=== PATIENT | female | born 1960 | race Caucasian/White ===

== ENCOUNTER 2018-01-19 11:47 | Emergency (ER) | payer OTHER ==
[~2018-01-19] VITALS: Ht 165.1 cm; Wt 77.7 kg
[~2018-01-19 11:47] MED LIST: OMEP40EC1 PO
[2018-01-19 12:00] VITALS: BP 172/99
--- NOTE | 2018-01-19 14:00 | NUR ---
57YO F C/O DIZZINESS SINCE LAST NIGHT; TOOK HER MEDICATION AT 1100 TODAY, PT STATES THAT THE ROOM IS SPINNING WITH QUICK HEAD MOVEMENTS. PT DENIES ANY N/V/D. LS CLEAR THROUGHOUT, BS ACTIVE X4, ABD SOFT NON TENDER. WILL CONTINUE TO MONITOR, ER MD MADE AWARE. PT PROVIDED WITH CUP OF WATER. BS:236 HX; DM, HTN, CHOLESTEROL RX; ATORVASTATIN, AMLODIPIN-BENAZEPRIL, METFORMIN, ASA
[2018-01-19] MEDS: NACL 0.9% 1,000 ML IV ONE (15:43)
[2018-01-19 15:56] LABS: BASOPHILS % (AUTO) 0.5 % (0.0-2.0); EOSINOPHILS # (AUTO) 0.1 K/uL (0-0.4); EOSINOPHILS % (AUTO) 1.3 % (0.0-4.0); HEMATOCRIT 44.6 % (36-48); HEMOGLOBIN 14.9 g/dL (12.0-16.0); LYMPHOCYTES # (AUTO) 2.4 K/uL (2.5-16.5); LYMPHOCYTES % (AUTO) 25.8 % (20.5-51.1); MEAN CORPUSCULAR HEMOGLOBIN 30 pg (27-31); MEAN CORPUSCULAR HGB CONC 33 g/dL (33-37); MEAN CORPUSCULAR VOLUME 90.2 fL (80-94); MONOCYTES # (AUTO) 0.5 K/uL (0.8-1.0); MONOCYTES % (AUTO) 5.5 % (1.7-9.3); NEUTROPHILS # (AUTO) 6.2 K/uL (1.8-7.7); NEUTROPHILS % (AUTO) 66.9 % (42.2-75.2); PLATELET COUNT (AUTO) 257 K/uL (140-450); RED BLOOD CELL COUNT(AUTO) 4.94 MIL/uL (4.20-5.40); RED CELL DISTRIBUTION WIDTH 13.5 % (11.6-13.7); WHITE BLOOD COUNT (AUTO) 9.3 K/uL (4.8-10.8)
[2018-01-19] MEDS: ONDANSETRON 4 MG ODT PO ONE (16:10)
[2018-01-19 16:15] LABS: BILIRUBIN,URINE NEGATIVE (NEGATIVE); BLOOD, URINE NEGATIVE (NEGATIVE); COLOR,URINE YELLOW (YELLOW); LEUKOCYTE ESTERASE ,URINE NEGATIVE (NEGATIVE); NITRITE, URINE NEGATIVE (NEGATIVE); UGLUCOSE 1+ (NEGATIVE)
[2018-01-19 16:23] LABS: ANION GAP 8.7 (8-16); CARBON DIOXIDE 29.2 mmol/L (21-32); CREATININE 0.8 mg/dL (0.6-1.3); POTASSIUM 3.9 mmol/L (3.5-5.1)
[2018-01-19 16:27] LABS: APPEARANCE,URINE CLEAR (CLEAR)
--- NOTE | 2018-01-19 16:38 | NUR ---
PT LEFT FOR CT PER TECH VIA WHEELCHAIR.
[2018-01-19 16:39] LABS: ALBUMIN 4.2 g/dL (3.4-5.0); THYROID STIMULATING HORMONE 7.91 uIU/mL (0.34-3.74); TOTAL BILIRUBIN 0.4 mg/dL (0.0-1.0)
[2018-01-19] MEDS: MECLIZINE 25 MG TAB PO ONE (16:52)
[2018-01-19] MEDS: METOCLOPRAMIDE 10 MG/2 ML INJ VIAL IVP ONE (16:53)
--- NOTE | 2018-01-19 16:53 | NUR ---
PT BACK TO CHAIR E
[2018-01-19] MEDS: diphenhydrAMINE 50 MG/ML VIAL IVP ONE (16:56)
[2018-01-19 18:11] VITALS: BP 138/75
--- NOTE | 2018-01-19 18:11 | NUR ---
Patient discharged with v/s stable. Written and verbal after care instructions given and explained. Patient alert, oriented and verbalized understanding of instructions. Ambulatory with steady gait. All questions addressed prior to discharge. ID band removed. Patient advised to follow up with PMD. Rx of MECLIZINE HYDROCHLORIDE given. Patient educated on indication of medication including possible reaction and side effects. Opportunity to ask questions provided and answered.
== END 2018-01-19 18:11 | disposition home or self-care (01) ==
LOC: MED 11:47
DX: R42 Dizziness and giddiness (principal); R94.31 Abnormal electrocardiogram [ECG] [EKG]; E11.9 Type 2 diabetes mellitus without complications; I10 Essential (primary) hypertension; Z88.6 Allergy status to analgesic agent; Z79.899 Other long term (current) drug therapy
CPT/HCPCS: 36415; 70450; 71046; 80053; 81003; 82948; 83690; 83735; 84443; 84484; 85025; 93005; 96361; 96374; 96375; 99285; J1200; J2765; J7030; J8597; S0119

== ENCOUNTER 2020-03-28 05:26 | Inpatient (IN) | payer OTHER, SELFPAY ==
[2020-03-21 12:00] LABS: BASOPHILS % (AUTO) 0.5 % (0.0-2.0); EOSINOPHILS # (AUTO) 0.1 K/uL (0-0.4); EOSINOPHILS % (AUTO) 0.6 % (0.0-4.0); HEMATOCRIT 35.5 % (36-48); HEMOGLOBIN 11.3 g/dL (12.0-16.0); LYMPHOCYTES # (AUTO) 2.2 K/uL (2.5-16.5); LYMPHOCYTES % (AUTO) 22.3 % (20.5-51.1); MEAN CORPUSCULAR HEMOGLOBIN 26 pg (27-31); MEAN CORPUSCULAR HGB CONC 32 g/dL (33-37); MEAN CORPUSCULAR VOLUME 81.2 fL (80-94); MONOCYTES # (AUTO) 0.7 K/uL (0.8-1.0); MONOCYTES % (AUTO) 6.5 % (1.7-9.3); NEUTROPHILS % (AUTO) 70.1 % (42.2-75.2); PLATELET COUNT (AUTO) 357 K/uL (140-450); RED BLOOD CELL COUNT(AUTO) 4.37 MIL/uL (4.20-5.40); RED CELL DISTRIBUTION WIDTH 13.9 % (11.6-13.7)
[2020-03-21 12:11] LABS: ALBUMIN 4.1 g/dL (3.4-5.0); ANION GAP 9.9 (8-16); CARBON DIOXIDE 26.8 mmol/L (21-32); CREATININE 0.8 mg/dL (0.6-1.3); POTASSIUM 3.7 mmol/L (3.5-5.1); TOTAL BILIRUBIN 0.4 mg/dL (0.0-1.0)
[~2020-03-28] VITALS: Ht 157.5 cm; Wt 74.8 kg
[~2020-03-28 05:26] MED LIST changes: -OMEP40EC1 PO; +OMEP40EC24 PO
[2020-03-28] MEDS ORDERED: BUPIVACAINE-MPF 0.25% 30 ML VIAL INJ ONE (07:12)
[2020-03-28] MEDS ORDERED: LIDOCAINE 1% 500 MG/50 ML VIAL ONE (07:12)
[2020-03-28] MEDS ORDERED: ceFAZolin 1,000 MG VIAL ONE ×2 (07:33→07:35)
[2020-03-28] MEDS ORDERED: LIDOCAINE MPF 2% 100 MG/5 ML VIAL INJ ONE (07:35)
[2020-03-28] MEDS ORDERED: NEOSTIGMINE 1:1000 10 MG/10 ML VIAL ONE (07:35)
[2020-03-28] MEDS ORDERED: ROCURONIUM 50 MG/5 ML VIAL IV ONE (07:35)
[2020-03-28] MEDS ORDERED: ONDANSETRON 4 MG/2 ML VIAL ONE ×2 (07:35)
[2020-03-28] MEDS ORDERED: ETOMIDATE 20 MG/10 ML VIAL IVP ONE (07:35)
[2020-03-28] MEDS ORDERED: MORPHINE PRES FREE 10 MG/10 ML AMP IV ONE (07:35)
[2020-03-28] MEDS ORDERED: GLYCOPYRROLATE 0.2 MG/ML VIAL ONE (07:35)
[2020-03-28] MEDS ORDERED: DEXAMETHASONE 4 MG/ML VIAL ONE (07:35)
[2020-03-28] MEDS ORDERED: PROPOFOL 200 MG/20 ML VIAL IV ONE (07:35)
[2020-03-28] MEDS ORDERED: fentaNYL citrate 0.05 MG/ML VIAL ONE (07:35)
[2020-03-28] MEDS ORDERED: SUCCINYLCHOLINE CHLORIDE 200 MG/10 ML VIAL IVP ONE (07:35)
[2020-03-28] MEDS ORDERED: SEVOFLURANE 250 ML BTL INH ONE (07:35)
[2020-03-28] MEDS ORDERED: KETOROLAC 30 MG/ML VIAL IVP PRN (08:10)
[2020-03-28] MEDS ORDERED: TEMAZEPAM 15 MG CAP PO PRN (08:10)
[2020-03-28] MEDS ORDERED: oxyCODONE/APAP 5/325 MG 1 TAB TAB PO PRN (08:10)
[2020-03-28] MEDS ORDERED: ONDANSETRON 4 MG/2 ML VIAL IVP PRN ×3 (08:10→08:45)
[2020-03-28] MEDS ORDERED: BLOOD GLUCOSE MONITORING 1 DEV DEV FS ONE (08:45)
[2020-03-28] MEDS ORDERED: diphenhydrAMINE 50 MG/ML VIAL IVP PRN ×2 (08:45)
[2020-03-28] MEDS ORDERED: HYDROmorphone 1 MG/ML AMP IVP PRN (08:45)
[2020-03-28] MEDS ORDERED: MEPERIDINE 25 MG/ML SYR IVP PRN (08:45)
[2020-03-28] MEDS ORDERED: NALOXONE 0.4 MG/ML VIAL IVP PRN ×2 (08:45)
[2020-03-28] MEDS ORDERED: fentaNYL citrate 0.05 MG/ML VIAL IVP PRN (08:45)
--- NOTE | 2020-03-28 08:52 | NUR ---
PATIENT HAS BEEN SCREENED AND CATEGORIZED LOW NUTRITION RISK. PATIENT WILL BE SEEN WITHIN 7 DAYS OF ADMISSION. 04/03/[address]
[2020-03-28] MEDS: LACTATED RINGERS 1,000 ML IV SCH ×2 (15:26→22:41)
[2020-03-28] MEDS: KETOROLAC 30 MG/ML VIAL IM/IVP SCH ×2 (15:44→21:52)
[2020-03-28] MEDS ORDERED: metFORMIN 500 MG TAB PO SCH (20:20)
[2020-03-28] MEDS ORDERED: ATORVASTATIN 20 MG TAB ONE (20:41)
[2020-03-28] MEDS ORDERED: metFORMIN 500 MG TAB ONE (20:42)
[2020-03-28] MEDS ORDERED: ATORVASTATIN 20 MG TAB PO SCH (21:00)
[2020-03-28] MEDS: DOCUSATE SOD/SENNA 50/8.6 MG 1 TAB PO SCH (21:10)
[2020-03-29] MEDS ORDERED: CAMERA MC ONE (02:05)
[2020-03-29] MEDS: SIMETHICONE 80 MG TAB.CHEW PO PRN ×2 (04:41→12:37)
[2020-03-29 07:00] LABS: BASOPHILS % (AUTO) 0.1 % (0.0-2.0); EOSINOPHILS % (AUTO) 0.1 % (0.0-4.0); LYMPHOCYTES # (AUTO) 1.7 K/uL (2.5-16.5); LYMPHOCYTES % (AUTO) 14.5 % (20.5-51.1); MEAN CORPUSCULAR HEMOGLOBIN 26 pg (27-31); MEAN CORPUSCULAR HGB CONC 32 g/dL (33-37); MEAN CORPUSCULAR VOLUME 79.9 fL (80-94); MONOCYTES # (AUTO) 1.2 K/uL (0.8-1.0); MONOCYTES % (AUTO) 10.1 % (1.7-9.3); NEUTROPHILS # (AUTO) 8.8 K/uL (1.8-7.7); NEUTROPHILS % (AUTO) 75.2 % (42.2-75.2); PLATELET COUNT (AUTO) 247 K/uL (140-450); RED CELL DISTRIBUTION WIDTH 13.9 % (11.6-13.7); WHITE BLOOD COUNT (AUTO) 11.7 K/uL (4.8-10.8)
[2020-03-29] MEDS: oxyCODONE/APAP 5/325 MG 1 TAB TAB PO PRN (12:35)
[2020-03-29] MEDS: IBUPROFEN 800 MG TAB PO PRN (19:38)
[2020-03-29] MEDS: DOCUSATE SOD/SENNA 50/8.6 MG 1 TAB PO SCH (21:06)
[2020-03-30] MEDS: oxyCODONE/APAP 5/325 MG 1 TAB TAB PO PRN (00:52)
[2020-03-30] MEDS: SIMETHICONE 80 MG TAB.CHEW PO PRN (05:08)
[2020-03-30] MEDS ORDERED: bisacodyL 10 MG SUPP RC SCH (08:35)
[2020-03-30] MEDS: IBUPROFEN 800 MG TAB PO PRN (12:05)
[2020-03-30 12:18] VITALS: BP 114/71
== END 2020-03-30 13:50 | disposition home or self-care (01) | DRG 513 ==
LOC: MFCC 05:26
PROVIDERS: ADMIT Obstetrics & Gynecology; ATTEND Obstetrics & Gynecology
PROC: 0UT70ZZ Resection of Bilateral Fallopian Tubes, Open Approach (ICD-10-PCS; 2020-03-28)
PROC: 0UT90ZL Resection of Uterus, Supracervical, Open Approach (ICD-10-PCS; principal; 2020-03-28 07:30)
DX: N95.0 Postmenopausal bleeding (principal); D25.9 Leiomyoma of uterus, unspecified; Z20.828 Contact with and (suspected) exposure to other viral communicable diseases
CPT/HCPCS: 36415; 71045; 80053; 81025; 84702; 85025; 86886; 86900; 86901; J0330; J0690; J1100; J1885; J2001; J2270; J2405; J2704; J2710; J3010; J3490; U0003

== ENCOUNTER 2020-07-04 05:35 | Emergency (ER) | payer OTHER, SELFPAY ==
[~2020-07-04] VITALS: Ht 162.6 cm; Wt 69.4 kg
[2020-07-04 05:39] VITALS: BP 142/85
--- NOTE | 2020-07-04 05:39 | NUR ---
TO BED AMBULATORY
--- NOTE | 2020-07-04 05:47 | NUR ---
PATIENT PRESENTS TO ED WITH C/O PAINFUL URINATION SINCE YESTERDAY WITHM ABDOMINAL PAIN . PT STATES THERE HAS BEEN BLOOD IN THE URINE. DENIES N/V/D; SKIN IS PINK/WARM/DRY; AAOX4 WITH EVEN AND STEADY GAIT; LUNGS CLEAR BL; HR EVEN AND REGULAR; VSS; PATIENT POSITIONED FOR COMFORT; HOB ELEVATED; BEDRAILS UP X2; BED DOWN. ER MD MADE AWARE OF PT STATUS.
--- NOTE | 2020-07-04 05:52 | NUR ---
UA OBTAINED AND SENT TO LAB
[2020-07-04 06:03] LABS: APPEARANCE,URINE CLOUDY (CLEAR); BILIRUBIN,URINE NEGATIVE (NEGATIVE); BLOOD, URINE 3+ (NEGATIVE); COLOR,URINE RED (YELLOW); LEUKOCYTE ESTERASE ,URINE 2+ (NEGATIVE); NITRITE, URINE POSITIVE (NEGATIVE); PH,URINE 5.5 (5.0-9.0); UGLUCOSE NEGATIVE (NEGATIVE)
[2020-07-04 06:21] LABS: RBC,URINE TOO NUMEROUS TO COUN /HPF (0-5)
[2020-07-04 06:22] LABS: WBC,URINE 16-25 (MOD) /HPF (0-5)
[2020-07-04 06:23] LABS: YEAST,URINE Few /HPF (None Seen)
[2020-07-04] MEDS ORDERED: PYR100 PO (06:27)
[2020-07-04] MEDS ORDERED: SULF-59 PO (06:27)
[2020-07-04 06:34] VITALS: BP 142/85
--- NOTE | 2020-07-04 06:34 | NUR ---
Patient discharged with v/s stable. Written and verbal after care instructions given and explained. Patient alert, oriented and verbalized understanding of instructions. Ambulatory with steady gait. All questions addressed prior to discharge. ID band removed. Patient advised to follow up with PMD. Rx of PYRIDIUM, BACTRIM DS given. Patient educated on indication of medication including possible reaction and side effects. Opportunity to ask questions provided and answered.
== END 2020-07-04 06:39 | disposition home or self-care (01) ==
LOC: MED 05:35
DX: N30.91 Cystitis, unspecified with hematuria (principal); R30.0 Dysuria; E11.9 Type 2 diabetes mellitus without complications; I10 Essential (primary) hypertension; Z88.8 Allergy status to other drugs, medicaments and biological substances; Z79.899 Other long term (current) drug therapy; Z90.49 Acquired absence of other specified parts of digestive tract; Z85.9 Personal history of malignant neoplasm, unspecified
CPT/HCPCS: 81001; 87086; 99283

== ENCOUNTER 2020-07-06 09:36 | Emergency (ER) | payer OTHER ==
[~2020-07-06] VITALS: Ht 167.6 cm; Wt 72.6 kg
[~2020-07-06 09:36] MED LIST changes: -OMEP40EC24 PO; +PYR100 PO; +SULF-59 PO
[2020-07-06 09:45] VITALS: BP 164/72
[2020-07-06] MEDS ORDERED: cefTRIAXone 1,000 MG in LIDOCAINE MPF 1% 2.1 ML IM ONE (10:20)
[2020-07-06] MEDS ORDERED: LIDOCAINE MPF 1% 10 MG/ML VIAL INJ ONE (10:20)
[2020-07-06] MEDS ORDERED: LIDOCAINE MPF 1% 5 ML ONE (10:23)
[2020-07-06] MEDS ORDERED: cefTRIAXone 1,000 MG VIAL ONE (10:23)
[2020-07-06] MEDS ORDERED: CIPR500T4 PO (10:26)
[2020-07-06] MEDS ORDERED: PYR100 PO (10:27)
[2020-07-06 10:44] VITALS: BP 164/72
== END 2020-07-06 10:46 | disposition home or self-care (01) ==
LOC: MED 09:36
DX: N39.0 Urinary tract infection, site not specified (principal); E11.9 Type 2 diabetes mellitus without complications; I10 Essential (primary) hypertension; Z88.6 Allergy status to analgesic agent; Z85.9 Personal history of malignant neoplasm, unspecified
CPT/HCPCS: 81002; 82948; 87086; 96372; 99283; J0696; J2001

== ENCOUNTER 2021-01-25 16:40 | Emergency (ER) | payer OTHER ==
[~2021-01-25] VITALS: Ht 162.6 cm; Wt 73.5 kg
[~2021-01-25 16:40] MED LIST changes: +CIPR500T4 PO
[2021-01-25 16:46] VITALS: BP 152/91
--- NOTE | 2021-01-25 17:00 | NUR ---
60 Y/O FEMALE C/O URINARY BURNING. PT STATES "SORENESS UPON URINATION" X 3AM. PT STATES 8/10 PAIN. MEDHX: DM, HTN ALLERGIES: TRAMADOL
[2021-01-25] MEDS ORDERED: SULF-59 PO (17:18)
[2021-01-25] MEDS ORDERED: PYR100 PO (17:18)
[2021-01-25] MEDS ORDERED: ACET-10509 PO (17:18)
[2021-01-25] MEDS ORDERED: cefTRIAXone 500 MG in LIDOCAINE MPF 1% 1 ML IM ONE (17:20)
[2021-01-25] MEDS ORDERED: cefTRIAXone 500 MG VIAL ONE (17:33)
[2021-01-25] MEDS ORDERED: LIDOCAINE MPF 1% 5 ML ONE (17:34)
--- NOTE | 2021-01-25 18:03 | NUR ---
Patient discharged with v/s stable. Written and verbal after care instructions ABOUT UTI given and explained. Patient alert, oriented and verbalized understanding of instructions. Ambulatory with steady gait. All questions addressed prior to discharge. ID band removed. Patient advised to follow up with PMD. Rx of TYLENOL EXTRA STRENGTH, PYRIDIUM AND BACTRIM DS given. Patient educated on indication of medication including possible reaction and side effects. Opportunity to ask questions provided and answered.
== END 2021-01-25 18:03 | disposition home or self-care (01) ==
LOC: MED 16:40
DX: N39.0 Urinary tract infection, site not specified (principal); E11.9 Type 2 diabetes mellitus without complications; I10 Essential (primary) hypertension; Z88.5 Allergy status to narcotic agent; Z79.899 Other long term (current) drug therapy; Z85.9 Personal history of malignant neoplasm, unspecified
CPT/HCPCS: 81002; 81025; 96372; 99283; J0696; J2001

== ENCOUNTER 2021-08-06 15:31 | Emergency (ER) | payer OTHER ==
[~2021-08-06] VITALS: Ht 162.6 cm; Wt 72.6 kg
[~2021-08-06 15:31] MED LIST changes: +ACET-10509 PO
[2021-08-06 15:37] VITALS: BP 140/104
[2021-08-06] MEDS ORDERED: ACET-8386 PO ×2 (16:20→16:21)
[2021-08-06] MEDS ORDERED: IBUP-1842 PO (16:20)
[2021-08-06] MEDS ORDERED: VALA1TAB2 PO (16:20)
--- NOTE | 2021-08-06 16:34 | NUR ---
60 Y/O FEMALE C/O LEFT LEG PAIN 10 X1WEEK AGO. DENIES FEVER/CHILLS. DENIES N/V/D. PMH: UTERINE CANCER, HYSTERECTOMY, CHEMOTHERAPY, DM, HTN, HLD ALLERGIES: TRAMADOL
[2021-08-06 16:49] VITALS: BP 140/104
--- NOTE | 2021-08-06 16:50 | NUR ---
Patient discharged with v/s stable. Written and verbal after care instructions given and explained. Patient alert, oriented and verbalized understanding of instructions. Ambulatory with steady gait. All questions addressed prior to discharge. ID band removed. Patient advised to follow up with PMD. Rx of HYDROCODONE-ACETAMINOPHEN, IBUPROFEN, VALCYCLOVIR HCL given. Patient educated on indication of medication including possible reaction and side effects. Opportunity to ask questions provided and answered.
== END 2021-08-06 16:50 | disposition home or self-care (01) ==
LOC: MED 15:31
DX: B02.9 Zoster without complications (principal); E11.9 Type 2 diabetes mellitus without complications; I10 Essential (primary) hypertension; Z88.6 Allergy status to analgesic agent; Z79.899 Other long term (current) drug therapy
CPT/HCPCS: 82948; 99283

== ENCOUNTER 2022-03-15 09:45 | Emergency (ER) | payer OTHER ==
[~2022-03-15] VITALS: Ht 165.1 cm; Wt 73.3 kg
[~2022-03-15 09:45] MED LIST changes: +ACET-8386 PO; +IBUP-1842 PO; +VALA1TAB2 PO
[2022-03-15 10:13] VITALS: BP 138/72
--- NOTE | 2022-03-15 10:19 | NUR ---
COVID, FLU SWAB DONE.
--- NOTE | 2022-03-15 10:24 | NUR ---
Walked swabs to lab. Handed to CPT. Viki
--- NOTE | 2022-03-15 10:30 | NUR ---
BIB SELF C/O 6/10 SORE THROAT, COUGH X 3 DAYS. PMH: DM, HTN
[2022-03-15] MEDS ORDERED: IBUP-1842 PO (11:34)
[2022-03-15] MEDS ORDERED: PROM118S5 PO (11:35)
[2022-03-15 11:41] VITALS: BP 130/70
--- NOTE | 2022-03-15 11:46 | NUR ---
Patient discharged with v/s stable. Written and verbal after care instructions given and explained. Patient alert, oriented and verbalized understanding of instructions. Ambulatory with steady gait. All questions addressed prior to discharge. ID band removed. Patient advised to follow up with PMD. Rx of IBU,PROMETHAZINE-DM given. Patient educated on indication of medication including possible reaction and side effects. Opportunity to ask questions provided and answered.
== END 2022-03-15 11:41 | disposition home or self-care (01) ==
LOC: MED 09:45
DX: J02.9 Acute pharyngitis, unspecified (principal); Z20.822 Contact with and (suspected) exposure to COVID-19; E11.9 Type 2 diabetes mellitus without complications; I10 Essential (primary) hypertension; Z85.89 Personal history of malignant neoplasm of other organs and systems; Z79.899 Other long term (current) drug therapy; Z79.1 Long term (current) use of non-steroidal anti-inflammatories (NSAID); Z79.891 Long term (current) use of opiate analgesic; Z79.2 Long term (current) use of antibiotics; Z88.5 Allergy status to narcotic agent
CPT/HCPCS: 99283

== ENCOUNTER 2022-12-17 14:57 | Emergency (ER) | payer OTHER ==
[~2022-12-17] VITALS: Ht 162.6 cm; Wt 73.5 kg
[~2022-12-17 14:57] MED LIST changes: -ACET-8386 PO; +ACET-8905 PO; +PROM118S5 PO
[2022-12-17 15:02] VITALS: BP 132/73; PULSE 98; RESP 19; TEMP 97.7; O2SAT 96
[2022-12-17] MEDS ORDERED: FAMOTIDINE 20 MG/2 ML VIAL IVP ONE (15:55)
[2022-12-17] MEDS ORDERED: PANTOPRAZOLE 40 MG INJ VIAL IVP ONE (15:55)
[2022-12-17 16:53] LABS: BASOPHILS % (AUTO) 0.4 % (0.0-2.0); EOSINOPHILS # (AUTO) 0.1 K/uL (0-0.4); EOSINOPHILS % (AUTO) 1.1 % (0.0-4.0); HEMATOCRIT 33.2 % (36-48); HEMOGLOBIN 11.1 g/dL (12.0-16.0); LYMPHOCYTES # (AUTO) 1.1 K/uL (2.5-16.5); LYMPHOCYTES % (AUTO) 15.2 % (20.5-51.1); MEAN CORPUSCULAR HEMOGLOBIN 30 pg (27-31); MEAN CORPUSCULAR HGB CONC 33 g/dL (33-37); MEAN CORPUSCULAR VOLUME 88.9 fL (80-94); MONOCYTES # (AUTO) 0.6 K/uL (0.8-1.0); MONOCYTES % (AUTO) 8.7 % (1.7-9.3); NEUTROPHILS # (AUTO) 5.2 K/uL (1.8-7.7); NEUTROPHILS % (AUTO) 74.6 % (42.2-75.2); PLATELET COUNT (AUTO) 349 K/uL (140-450); RED BLOOD CELL COUNT(AUTO) 3.73 MIL/uL (4.20-5.40); RED CELL DISTRIBUTION WIDTH 14.3 % (11.6-13.7)
[2022-12-17 17:32] LABS: ALANINE AMINOTRANSFERASE 32 U/L (12-78); ALBUMIN 3.9 g/dL (3.4-5.0); ALKALINE PHOSPHATASE 40 U/L (50-136); ANION GAP 11.8 (8-16); ASPARTATE AMINOTRANSFERASE 22 U/L (15-37); CALCIUM 8.6 mg/dL (8.5-10.1); CARBON DIOXIDE 25.2 mmol/L (21-32); CHLORIDE 102 mmol/L (98-107); CREATININE 0.9 mg/dL (0.6-1.3); GFR ARICAN-AMERICAN 82 mL/min (>90); GFR NON ARICAN-AMERICAN 68 mL/min (>90); GLUCOSE 98 mg/dL (74-106); LIPASE 85 U/L (73-393); SODIUM SERUM 136 mmol/L (136-145); TOTAL BILIRUBIN 0.4 mg/dL (0.0-1.0); TOTAL PROTEIN, SERUM 7.7 g/dL (6.4-8.2); UREA NITROGEN, BLOOD 15 mg/dL (7-18)
[2022-12-17] MEDS ORDERED: SODIUM PHOS / POTASSIUM PHOS 1 PKT PDR PO SCH (17:45)
[2022-12-17] MEDS ORDERED: AMOX1TER12 PO (17:50)
[2022-12-17 17:57] VITALS: BP 132/73; PULSE 98; RESP 19; TEMP 97.7; O2SAT 96
== END 2022-12-17 18:01 | disposition home or self-care (01) ==
LOC: MED 14:57
DX: R10.13 Epigastric pain (principal); E11.9 Type 2 diabetes mellitus without complications; I10 Essential (primary) hypertension; Z79.899 Other long term (current) drug therapy; Z88.5 Allergy status to narcotic agent; Z85.9 Personal history of malignant neoplasm, unspecified
CPT/HCPCS: 36415; 71045; 80053; 83690; 84484; 85025; 93005; 96374; 96375; 99284; C9113; J3490

== ENCOUNTER 2023-01-22 06:25 | Emergency (ER) | payer OTHER ==
[~2023-01-22] VITALS: Ht 165.1 cm; Wt 68.0 kg
[~2023-01-22 06:25] MED LIST changes: +AMOX1TER12 PO
[2023-01-22 07:02] VITALS: PULSE 92; RESP 16; TEMP 96.8; O2SAT 98
[2023-01-22 08:00] VITALS: O2SAT 98
[2023-01-22 08:19] LABS: BASOPHILS % (AUTO) 0.4 % (0.0-2.0); EOSINOPHILS % (AUTO) 0.8 % (0.0-4.0); HEMATOCRIT 33.7 % (36-48); HEMOGLOBIN 11.3 g/dL (12.0-16.0); LYMPHOCYTES # (AUTO) 0.8 K/uL (2.5-16.5); LYMPHOCYTES % (AUTO) 13.8 % (20.5-51.1); MEAN CORPUSCULAR HEMOGLOBIN 29 pg (27-31); MEAN CORPUSCULAR HGB CONC 34 g/dL (33-37); MONOCYTES # (AUTO) 0.4 K/uL (0.8-1.0); MONOCYTES % (AUTO) 6.9 % (1.7-9.3); NEUTROPHILS # (AUTO) 4.6 K/uL (1.8-7.7); NEUTROPHILS % (AUTO) 78.1 % (42.2-75.2); PLATELET COUNT (AUTO) 377 K/uL (140-450); RED BLOOD CELL COUNT(AUTO) 3.83 MIL/uL (4.20-5.40); RED CELL DISTRIBUTION WIDTH 14.5 % (11.6-13.7); WHITE BLOOD COUNT (AUTO) 5.8 K/uL (4.8-10.8)
[2023-01-22 08:56] LABS: ALBUMIN 3.9 g/dL (3.4-5.0); ANION GAP 11.2 (8-16); CALCIUM 8.7 mg/dL (8.5-10.1); CARBON DIOXIDE 28.3 mmol/L (21-32); CREATININE 0.9 mg/dL (0.6-1.3); POTASSIUM 3.5 mmol/L (3.5-5.1); TOTAL BILIRUBIN 0.3 mg/dL (0.0-1.0); TOTAL PROTEIN, SERUM 7.7 g/dL (6.4-8.2)
[2023-01-22] MEDS ORDERED: DOXY-690 PO (13:34)
[2023-01-22 14:03] VITALS: BP 124/73; PULSE 89; RESP 16; TEMP 98; O2SAT 98
== END 2023-01-22 14:02 | disposition home or self-care (01) ==
LOC: MED 06:25
DX: R91.8 Other nonspecific abnormal finding of lung field (principal); R04.2 Hemoptysis; E11.9 Type 2 diabetes mellitus without complications; I10 Essential (primary) hypertension; Z79.899 Other long term (current) drug therapy; Z88.5 Allergy status to narcotic agent; Z85.89 Personal history of malignant neoplasm of other organs and systems
CPT/HCPCS: 36415; 71046; 71250; 80053; 82948; 85025; 99285